=== PATIENT | female | born 1990 | race African-American/Black ===

== ENCOUNTER 2017-01-02 15:45 | Emergency (ER) | payer MEDICAID ==
[~2017-01-02] VITALS: Ht 167.6 cm; Wt 118.8 kg
[2017-01-02 15:45] VITALS: BP_SYST 131
[2017-01-02 16:22] LABS: BASOPHILS % (AUTO) 0.3 % (0.0-2.0); EOSINOPHILS # (AUTO) 0.1 K/uL (0.0-0.4); EOSINOPHILS % (AUTO) 0.6 % (0.0-4.0); HEMATOCRIT 39.3 % (36-48); HEMOGLOBIN 12.7 g/dL (12.0-16.0); LYMPHOCYTES # (AUTO) 1.8 K/uL (1.0-5.5); LYMPHOCYTES % (AUTO) 16.9 % (20.5-51.5); MEAN CORPUSCULAR HEMOGLOBIN 27 pg (27-31); MEAN CORPUSCULAR HGB CONC 32 % (32-36); MEAN CORPUSCULAR VOLUME 83 fL (79.0-98.0); MONOCYTES # (AUTO) 0.5 K/uL (0.0-1.0); MONOCYTES % (AUTO) 4.7 % (1.7-9.3); NEUTROPHILS # (AUTO) 8.1 K/uL (1.8-7.7); NEUTROPHILS % (AUTO) 77.5 % (40.0-70.0); PLATELET COUNT (AUTO) 236 K/uL (130-430); RED BLOOD CELL COUNT(AUTO) 4.76 MIL/uL (4.2-6.2); WHITE BLOOD COUNT (AUTO) 10.5 K/uL (4.8-10.8)
[2017-01-02 16:35] LABS: CALCIUM 9.7 mg/dL (8.4-11.0); CREATININE 0.65 mg/dL (0.55-1.30); POTASSIUM 3.6 mmol/L (3.5-5.1)
[2017-01-02 16:40] LABS: ALBUMIN 3.5 g/dL (3.4-4.8); TOTAL BILIRUBIN 0.8 mg/dL (0.0-1.0)
[2017-01-02 17:34] LABS: BLOOD, URINE 3+ (NEGATIVE); CLARITY/URINE CLOUDY (CLEAR); COLOR,URINE YELLOW (YELLOW); GLUCOSE,URINE NEGATIVE (NEGATIVE); KETONES,URINE TRACE (NEGATIVE); LEUKOCYTE ESTERASE ,URINE 2+ (NEGATIVE); NITRITE, URINE NEGATIVE (NEGATIVE); PH,URINE 6.5 (5.0-8.0); PROTEIN URINE 3+ (NEGATIVE)
[2017-01-02 17:36] LABS: BILIRUBIN,URINE NEGATIVE (NEGATIVE)
[2017-01-02 17:41] LABS: RBC,URINE 50-80 /HPF (0-3)
[2017-01-02 17:42] LABS: BACTERIA,URINE MANY /HPF (None Seen); MUCUS,URINE None Seen /LPF (None Seen); WBC,URINE 20-50 /HPF (0-3)
[2017-01-02] MEDS: NACL 0.9% 1,000 ML IV ONE (18:01)
[2017-01-02] MEDS: KETOROLAC TROMETHAMINE 30 MG VIAL IVP ONE (18:02)
[2017-01-02 20:15] VITALS: BP_SYST 115
== END 2017-01-02 20:15 | disposition home or self-care (01) ==
LOC: SED 15:45
DX: N39.0 Urinary tract infection, site not specified (principal); R03.0 Elevated blood-pressure reading, without diagnosis of hypertension
CPT/HCPCS: 36415; 76830; 76857; 80053; 81000; 81025; 85025; 87086; 87186; 87210; 96361; 96374; 99285; J1885

== ENCOUNTER 2019-03-22 20:05 | Emergency (ER) | payer MEDICAID ==
[~2019-03-22] VITALS: Ht 170.2 cm; Wt 113.4 kg
[2019-03-22 20:20] VITALS: BP_SYST 155
--- NOTE | 2019-03-22 21:19 | NUR ---
Patient to ER bed 04 to gown for evaluation. Side rails up.
--- NOTE | 2019-03-22 21:19 | NUR ---
Pt c/o fever, chills, head pressure, body aches, cough and congestion x 2 days.
--- NOTE | 2019-03-22 21:25 | NUR ---
Dr. Garcia at bedside.
[2019-03-22 21:45] VITALS: BP_SYST 122
--- NOTE | 2019-03-22 21:45 | NUR ---
Patient given written and verbal discharge instructions and verbalizes understanding. ER MD discussed with patient the results and treatment provided. Patient in stable condition. ID arm band removed. Rx of [place] and Tamiflu given. Patient educated on pain management and to follow up with PMD. Pain Scale 3/10. Opportunity for questions provided and answered. Medication side effect fact sheet provided.
== END 2019-03-22 21:45 | disposition home or self-care (01) ==
LOC: SED 20:05
DX: J11.1 Influenza due to unidentified influenza virus with other respiratory manifestations (principal)
CPT/HCPCS: 36415; 81002; 81025; 86710; 99283